=== PATIENT | male | born 1985 | race African-American/Black ===

== ENCOUNTER 2016-12-11 23:59 | Emergency (ER) | payer SELFPAY ==
[2016-12-12 00:01] VITALS: BP 145/88; PULSE 66; RESP 16; TEMP 98.9; O2SAT 98
[2016-12-12] MEDS ORDERED: AMOX500T PO (01:51)
[2016-12-12] MEDS ORDERED: DICL75TA PO (01:51)
--- NOTE | 2016-12-12 01:55 | PD ---
HPI Chief Complaint: Oral / Dental Pain or Problem Time Seen by Provider: 01:50 Travel History International Travel<30 days: No Contact w/Intl Traveler<30days: No Traveled to known affect area: No History of Present Illness HPI 31-year-old black male presents to emergency department with a complaint of dental pain for the past 3 days. He states that he has had a cavity in his tooth for some time. Over the last few days she's had increasing pain in his left lower mandible. Pain is moderate. Worse with chewing. No alleviating factors. PFSH Past Medical History Medical History: Denies Significant Hx Tetanus Vaccination: < 5 Years Past Surgical History Surgical History: No Previous Surgery Social History Alcohol Use: No Tobacco Use: Yes Allergies-Medications (Allergen,Severity, Reaction): Coded Allergies: tramadol (Verified Allergy, Severe, 12/12/16) Reported Meds & Prescriptions Reported Meds & Active Scripts Active Diclofenac Sodium DR (Diclofenac Sodium) 75 Mg Tabdr 75 Mg PO BID Amoxicillin 500 Mg Tab 500 Mg PO TID 10 Days Review of Systems General / Constitutional: No: Fever Eyes: No: Visual changes HENT: Positive: Dental Difficulties, No: Headaches, Sore Throat, Neck Pain, Ear Discharge, Earache Cardiovascular: No: Chest Pain or Discomfort Respiratory: No: Shortness of Breath Gastrointestinal: No: Abdominal Pain Genitourinary: No: Dysuria Musculoskeletal: No: Pain Skin: No Rash Neurologic: No: Weakness Psychiatric: No: Depression Endocrine: No: Polydipsia Hematologic/Lymphatic: No: Easy Bruising Physical Exam Narrative GENERAL: Well-developed, well-nourished in no acute distress. Nontoxic appearing. HEAD: Normocephalic, atraumatic. EYES: Pupils equal round and reactive. Extraocular motions intact. No scleral icterus. No injection or drainage. ENT: TMs clear without erythema. The external auditory canals clear. Nose: clear . Posterior pharynx is pink and moist. No tonsillar edema or exudate. Uvula midline. Airway patent. Patient has a large dental carry in tooth #19 no gingival erythema or edema. NECK: Trachea midline.Supple, nontender, moves head freely. No central bony tenderness or spasm. CARDIOVASCULAR: Regular rate and rhythm without murmurs, gallops, or rubs. RESPIRATORY: Clear to auscultation. Breath sounds equal bilaterally. No wheezes , rales, or rhonchi. GASTROINTESTINAL: Abdomen soft, non-tender, nondistended. No hepato-splenomegaly , or palpable masses. No guarding. EXTREMITIES: No clubbing, cyanosis, or edema. No joint tenderness, effusion, or edema noted. BACK: Nontender without deformity or crepitance. No flank tenderness. Data Data Last Documented VS Vital Signs Date Time Temp Pulse Resp B/P (MAP) Pulse Ox O2 Delivery O2 Flow Rate FiO2 12/12/16 00:01 98.9 66 16 145/88 (107) 98 Room Air Orders Orders Amoxicillin (Trimox) (12/12/16 02:00) Naproxen (Naprosyn) (12/12/16 02:00) MDM Medical Decision Making Medical Screen Exam Complete: Yes Emergency Medical Condition: Yes Medical Record Reviewed: Yes Differential Diagnosis MDM: Moderate Differential diagnoses: Dental abscess, dental caries, osteitis, cellulitis Narrative Course Patient's given amoxicillin 500 mg and Naprosyn 500 mg by mouth. This is dental caries, dentalgia Diagnosis Primary Impression: Dental caries Additional Impression: Dentalgia Patient Instructions: General Instructions Additional Instructions: Rest. [place] gargles. [place] oil on cotton balls. Amoxicillin and diclofenac.. follow-up with a dentist as soon as possible. And return to the ER if any problems. Med/Other Pt SpecificInfo: Prescription(s) given Scripts Diclofenac Sodium DR (Diclofenac Sodium DR) 75 Mg Tabdr 75 MG PO BID, #20 TAB 0 Refills Prov: Trice Moura MD 12/12/16 Amoxicillin (Amoxicillin) 500 Mg Tab 500 MG PO TID for Infection for 10 Days, TAB 0 Refills Prov: Trice Moura MD 12/12/16 Disposition: 01 DISCHARGE HOME Condition: Stable Galindo Manning Dec 12, 2016 01:55
[2016-12-12] MEDS ORDERED: NAPROXEN 500 MG TAB PO ONE (02:00)
[2016-12-12] MEDS ORDERED: AMOXICILLIN (TRIHYDRATE) 500 MG CAP PO ONE (02:00)
== END 2016-12-12 02:11 | disposition home or self-care (01) ==
LOC: NEPD 23:59
DX: K02.9 Dental caries, unspecified (principal); Z72.0 Tobacco use
CPT/HCPCS: 99284

== ENCOUNTER 2017-02-01 05:29 | Emergency (ER) | payer MEDICAID ==
[~2017-02-01] VITALS: Ht 188 cm; Wt 90.0 kg
[~2017-02-01 05:29] MED LIST: AMOX500T PO; DICL75TA PO
--- NOTE | 2017-02-01 05:44 | PD ---
HPI Chief Complaint: sore throat Time Seen by Provider: 05:30 Travel History International Travel<30 days: No Contact w/Intl Traveler<30days: No Traveled to known affect area: No History of Present Illness HPI 31-year-old male presents for evaluation of sore throat. Symptoms started 2 days ago. It is a pain when he swallows with associated chills, myalgias. He reports that he had a temperature 101.7. EMS this morning. He took some Tylenol yesterday but his symptoms have persisted which prompted evaluation. Denies drug use. Denies rash, recent travel, cough or congestion, urethral discharge, nausea or vomiting, abdominal pain. He has no other complaints at this time. [facility] Social History Alcohol Use: No Tobacco Use: Yes Allergies-Medications (Allergen,Severity, Reaction): Coded Allergies: tramadol (Verified Allergy, Severe, 12/12/16) Reported Meds & Prescriptions Reported Meds & Active Scripts Active Amoxicillin 875 Mg Tab 875 Mg PO BID [address] (Diclofenac Sodium) 75 Mg Tabdr 75 Mg PO BID Amoxicillin 500 Mg Tab 500 Mg PO TID 10 Days Review of Systems Except as stated in HPI: all other systems reviewed are Neg Physical Exam Narrative GENERAL: Well-developed well-nourished male in no acute distress SKIN: Warm and dry. HEAD: Atraumatic. Normocephalic. EYES: Pupils equal and round. No scleral icterus. No injection or drainage. ENT: No nasal bleeding or discharge. Mucous membranes pink and moist. There is oropharyngeal erythema and exudate formation. Uvula midline with no mass effect. NECK: Trachea midline. No JVD. No lymphadenopathy. CARDIOVASCULAR: Regular rate and rhythm. No murmur appreciated. RESPIRATORY: No accessory muscle use. Clear to auscultation. Breath sounds equal bilaterally. GASTROINTESTINAL: Abdomen soft, non-tender, nondistended. Hepatic and splenic margins not palpable. MUSCULOSKELETAL: No obvious deformities. No clubbing. No cyanosis. No edema. NEUROLOGICAL: Awake and alert. No obvious cranial nerve deficits. Motor grossly within normal limits. Normal speech. PSYCHIATRIC: Appropriate mood and affect; insight and judgment normal. Data Data Last Documented VS Vital Signs Date Time Temp Pulse Resp B/P (MAP) Pulse Ox O2 Delivery O2 Flow Rate FiO2 02/01/17 06:05 101.3 95 16 139/65 (89) 98 Orders Orders Group A Rapid Strep Screen (02/01/17 05:41) Ketorolac Inj (Toradol Inj) (02/01/17 05:45) Ed Discharge Order (02/01/17 05:57) MDM Medical Decision Making Medical Screen Exam Complete: Yes Emergency Medical Condition: Yes Medical Record Reviewed: Yes Differential Diagnosis Pharyngitis, tonsillitis, peritonsillar abscess, infectious mononucleosis, herpangina, retropharyngeal abscess, epiglottitis Narrative Course 31-year-old male with 2 days of sore throat, chills, fevers, myalgias. On examination he has exudative pharyngitis. Toradol was provided. Strep screen was performed however shortly after examination the patient demanded to leave. He did not want to wait for the strep screening to be performed and he would prefer to be treated empirically. Therefore the patient will be given a prescription for amoxicillin. Diagnosis Primary Impression: Exudative pharyngitis Additional Instructions: Medications prescribed. Stay well-hydrated and well-nourished. Take Tylenol and Motrin for pain and fever per dosing instructions on bottle over-the- counter. Follow-up with primary care physician and return for any emergent medical conditions. Med/Other Pt SpecificInfo: Prescription(s) given Scripts Amoxicillin (Amoxicillin) 875 Mg Tab 875 MG PO BID for Infection for 10 Days, #20 TAB 0 Refills Prov: Trice Moura MD 02/01/17 Disposition: 01 DISCHARGE HOME Condition: Stable Jaime Shahid Feb 01, 2017 05:44
[2017-02-01] MEDS ORDERED: KETOROLAC TROMETHAMINE 60 MG/2 ML (IM) VIAL IM ONE (05:45)
[2017-02-01] MEDS ORDERED: AMOX875T PO (05:57)
[2017-02-01 06:05] VITALS: BP 139/65; PULSE 95; RESP 16; TEMP 101.3; O2SAT 98
== END 2017-02-01 06:10 | disposition home or self-care (01) ==
LOC: NEPD 05:29
DX: J02.9 Acute pharyngitis, unspecified (principal); Z72.0 Tobacco use
CPT/HCPCS: 99283; J1885

== ENCOUNTER 2017-07-20 10:17 | Emergency (ER) | payer MEDICAID ==
[~2017-07-20] VITALS: Ht 195.6 cm; Wt 88.0 kg
[~2017-07-20 10:17] MED LIST changes: +AMOX875T PO
[2017-07-20 10:38] VITALS: BP 130/69; PULSE 85; RESP 18; TEMP 99.4; O2SAT 97
[2017-07-20] MEDS ORDERED: SODIUM CHLORIDE 0.9% FLUSH 10 ML FLUSH IVF PRN (12:30)
--- NOTE | 2017-07-20 12:51 | RADRPT ---
EXAM DATE: 07/20/2017 12:35 PM EDT AGE/SEX: 32 years / Male INDICATIONS: Chest pain CLINICAL DATA: This is the patient's initial encounter. Patient reports that signs and symptoms have been present for 2 days and indicates a pain score of 0/10. MEDICAL/SURGICAL HISTORY: None. None. COMPARISON: No prior exams available for comparison. FINDINGS: A single AP view of the chest demonstrates the lungs to be symmetrically aerated without evidence of mass, infiltrate or effusion. The cardiomediastinal contours are unremarkable. Osseous structures a re intact. CONCLUSION: No acute intrathoracic disease. Electronically signed by: Julito Londono MD 07/20/2017 12:49 PM EDT
[2017-07-20 12:54] LABS: AUTOMATED NEUTROPHIL # 2.2 TH/MM3 (1.8-7.7); BASOPHIL # 0.1 TH/MM3 (0-0.2); BASOPHIL % 1.4 % (0.0-2.0); EOSINOPHIL # 0.1 TH/MM3 (0-0.4); HEMATOCRIT 45.7 % (39.0-51.0); HEMOGLOBIN 15.8 GM/DL (13.0-17.0); LYMPH % 37.3 % (9.0-44.0); LYMPHOCYTE # 1.9 TH/MM3 (1.0-4.8); MEAN CELL VOLUME 82.5 FL (80.0-100.0); MEAN CORPUSCULAR HEMOGLOBIN 28.6 PG (27.0-34.0); MEAN CORPUSCULAR HGB CONC 34.7 % (32.0-36.0); MEAN PLATELET VOLUME 8.1 FL (7.0-11.0); MONO % 17.8 % (0.0-8.0); MONOCYTE # 0.9 TH/MM3 (0-0.9); NEUT % 42.5 % (16.0-70.0); PLATELET COUNT 256 TH/MM3 (150-450); RED BLOOD COUNT 5.54 MIL/MM3 (4.50-5.90); RED CELL DISTRIBUTION WIDTH 13.8 % (11.6-17.2); WHITE BLOOD COUNT 5.1 TH/MM3 (4.0-11.0)
[2017-07-20 13:16] LABS: ALT (GPT) 27 U/L (12-78); AST (GOT) 20 U/L (15-37); BICARBONATE 28.4 MEQ/L (21.0-32.0); BLOOD UREA NITROGEN 8 MG/DL (7-18); CALCIUM 9.1 MG/DL (8.5-10.1); CHLORIDE 105 MEQ/L (98-107); CREATININE 1.07 MG/DL (0.60-1.30); GLOMERULAR FILTRATION RATE 98 ML/MIN (>89); GLUCOSE,RANDOM 111 MG/DL (74-106); MAGNESIUM 2.4 MG/DL (1.5-2.5); SODIUM (NA) 141 MEQ/L (136-145)
[2017-07-20 13:19] LABS: ALKALINE PHOSPHATASE 62 U/L (45-117); TOTAL BILIRUBIN ADULT 0.3 MG/DL (0.2-1.0); TOTAL PROTEIN 7.5 GM/DL (6.4-8.2)
[2017-07-20 13:50] LABS: MONOSCREEN NEG (NEG)
--- NOTE | 2017-07-20 14:06 | PD ---
HPI Chief Complaint: General Weakness Time Seen by Provider: 12:09 Travel History International Travel<30 days: No Contact w/Intl Traveler<30days: No Traveled to known affect area: No History of Present Illness HPI Patient is a 32-year-old male presents emergency department for generalized body aches and just not feeling well. Mild nausea without vomiting. The patient states he had symptoms for the past 3 days. No other close sick contacts. No cough no congestion no fevers no runny nose no shortness of breath no rashes. No genital discharge no dysuria. Patient's symptoms are fairly nonspecific, states it been gradually worsening. Cannot think of any inciting events. States symptoms are mild, for the past 3 days, gradually worsening, context and associated signs and symptoms as above [facility] Past Medical History Medical History: Denies Significant Hx Diminished Hearing: No Immunizations Current: No Tetanus Vaccination: Unknown Influenza Vaccination: No Past Surgical History Surgical History: No Previous Surgery Social History Alcohol Use: No Tobacco Use: No Substance Use: No Allergies-Medications (Allergen,Severity, Reaction): Coded Allergies: tramadol (Verified Allergy, Severe, 07/20/17) Reported Meds & Prescriptions Reported Meds & Active Scripts Active No Active Prescriptions or Reported Medications Review of Systems Except as stated in HPI: all other systems reviewed are Neg Physical Exam Narrative GENERAL: Well-developed well-nourished tall male in no obvious distress. SKIN: Focused skin assessment warm/dry. No rash no wound seen on his person peer HEAD: Atraumatic. Normocephalic. EYES: Pupils equal and round. No scleral icterus. No injection or drainage. ENT: No nasal bleeding or discharge. Mucous membranes pink and moist. NECK: Trachea midline. No JVD. CARDIOVASCULAR: Regular rate and rhythm. No murmur appreciated. RESPIRATORY: No accessory muscle use. Clear to auscultation. Breath sounds equal bilaterally. GASTROINTESTINAL: Abdomen soft, non-tender, nondistended. Hepatic and splenic margins not palpable. MUSCULOSKELETAL: No obvious deformities. No clubbing. No cyanosis. No edema. NEUROLOGICAL: Awake and alert. No obvious cranial nerve deficits. Motor grossly within normal limits. Normal speech. PSYCHIATRIC: Appropriate mood and affect; insight and judgment normal. Data Data Last Documented VS Vital Signs Date Time Temp Pulse Resp B/P (MAP) Pulse Ox O2 Delivery O2 Flow Rate FiO2 07/20/17 14:39 67 18 142/72 (95) 100 07/20/17 10:38 99.4 Orders Orders Complete Blood Count With Diff (07/20/17 12:16) Comprehensive Metabolic Panel (07/20/17 12:16) Magnesium (Mg) (07/20/17 12:16) Chest, Single Ap (07/20/17 12:16) Ecg Monitoring (07/20/17 12:16) Iv Access Insert/Monitor (07/20/17 12:16) Oximetry (07/20/17 12:16) Oxygen Administration (07/20/17 12:16) Sodium Chloride 0.9% Flush (Ns Flush) (07/20/17 12:30) Monoscreen (07/20/17 12:16) Influenzae A/B Antigen (07/20/17 12:16) Ed Discharge Order (07/20/17 14:06) Labs Laboratory Tests Test 07/20/17 12:30 White Blood Count 5.1 TH/MM3 Red Blood Count 5.54 MIL/MM3 Hemoglobin 15.8 GM/DL Hematocrit 45.7 % Mean Corpuscular Volume 82.5 FL Mean Corpuscular Hemoglobin 28.6 PG Mean Corpuscular Hemoglobin Concent 34.7 % Red Cell Distribution Width 13.8 % Platelet Count 256 TH/MM3 Mean Platelet Volume 8.1 FL Neutrophils (%) (Auto) 42.5 % Lymphocytes (%) (Auto) 37.3 % Monocytes (%) (Auto) 17.8 % Eosinophils (%) (Auto) 1.0 % Basophils (%) (Auto) 1.4 % Neutrophils # (Auto) 2.2 TH/MM3 Lymphocytes # (Auto) 1.9 TH/MM3 Monocytes # (Auto) 0.9 TH/MM3 Eosinophils # (Auto) 0.1 TH/MM3 Basophils # (Auto) 0.1 TH/MM3 CBC Comment DIFF FINAL Differential Comment Blood Urea Nitrogen 8 MG/DL Creatinine 1.07 MG/DL Random Glucose 111 MG/DL Total Protein 7.5 GM/DL Albumin 4.0 GM/DL Calcium Level 9.1 MG/DL Magnesium Level 2.4 MG/DL Alkaline Phosphatase 62 U/L Aspartate Amino Transf (AST/SGOT) 20 U/L Alanine Aminotransferase (ALT/SGPT) 27 U/L Total Bilirubin 0.3 MG/DL Sodium Level 141 MEQ/L Potassium Level 4.2 MEQ/L Chloride Level 105 MEQ/L Carbon Dioxide Level 28.4 MEQ/L Anion Gap 8 MEQ/L Estimat Glomerular Filtration Rate 98 ML/MIN Monoscreen NEG MDM Medical Decision Making Medical Screen Exam Complete: Yes Emergency Medical Condition: Yes Differential Diagnosis Influenza, mono, dehydration, rhabdomyolysis, acute severe bacterial illness highly unlikely peer Narrative Course Patient room to the emergency department, symptoms consistent with a viral syndrome consider influenza however this certainly is very late in the season for influenza. Initial workup including CBC CMP Monospot influenza testing and chest x-ray negative. The patient appears well and nontoxic. Discussed he needs to follow-up with a primary care physician or the [facility] and return to ED criteria were discussed. Discussed symptomatic management aggressive p.o. hydration. Diagnosis Primary Impression: Fatigue Qualified Codes: R53.83 - Other fatigue Referrals: [facility] No Active Prescriptions or Reported Meds Disposition: 01 DISCHARGE HOME Condition: Stable Edison Perez MD July 20, 2017 14:06
[2017-07-20 14:39] VITALS: BP 142/72
== END 2017-07-20 14:50 | disposition home or self-care (01) ==
LOC: NEPD 10:17
DX: R53.83 Other fatigue (principal)
CPT/HCPCS: 71045; 80053; 83735; 85025; 86308; 87804; 99284

== ENCOUNTER 2017-08-04 06:20 | Emergency (ER) | payer MEDICAID ==
[~2017-08-04] VITALS: Ht 185.4 cm; Wt 88.0 kg
[2017-08-04 06:22] VITALS: BP 123/75; PULSE 92; RESP 15; TEMP 97.1; O2SAT 98
--- NOTE | 2017-08-04 06:34 | PD ---
HPI Chief Complaint: Oral / Dental Pain or Problem Time Seen by Provider: 06:29 Travel History International Travel<30 days: No Contact w/Intl Traveler<30days: No Traveled to known affect area: No History of Present Illness HPI 32-year-old black male presents emergency department with complaints of dental pain for the past 3 days. He has been using [id number] extra strength Excedrin without relief. He reports having appointment to see a dentist on the of this month. He denies any fever chills. He states the pain is moderate. Worse during the night some improvement during the day. He denies any facial swelling. History Past Medical Histgory Medical History: Denies Significant Hx Tetanus Vaccination: Unknown Past Surgical History Surgical History: No Previous Surgery Social History Alcohol Use: No Tobacco Use: No Allergies-Medications (Allergen,Severity, Reaction): Coded Allergies: tramadol (Verified Adverse Reaction, Intermediate, itching, 08/04/17) Reported Meds & Prescriptions Reported Meds & Active Scripts Active No Active Prescriptions or Reported Medications Review of Systems Except as stated in HPI: all other systems reviewed are Neg Physical Exam Narrative GENERAL: Well-developed, well-nourished in no acute distress. Nontoxic appearing. HEAD: Normocephalic, atraumatic. EYES: Pupils equal round and reactive. Extraocular motions intact. No scleral icterus. No injection or drainage. ENT: TMs clear without erythema. The external auditory canals clear. Nose: clear . Posterior pharynx is pink and moist. No tonsillar edema or exudate. Uvula midline. Airway patent. Patient has poor dentition. He has a large dental carry and tooth #18 and 31. No obvious abscess. NECK: Trachea midline.Supple, nontender, moves head freely. No central bony tenderness or spasm. CARDIOVASCULAR: Regular rate and rhythm without murmurs, gallops, or rubs. RESPIRATORY: Clear to auscultation. Breath sounds equal bilaterally. No wheezes , rales, or rhonchi. GASTROINTESTINAL: Abdomen soft, non-tender, nondistended. No hepato-splenomegaly , or palpable masses. No guarding. EXTREMITIES: No clubbing, cyanosis, or edema. No joint tenderness, effusion, or edema noted. BACK: Nontender without deformity or crepitance. No flank tenderness. Data Data Last Documented VS Vital Signs Date Time Temp Pulse Resp B/P (MAP) Pulse Ox O2 Delivery O2 Flow Rate FiO2 08/04/17 06:22 97.1 92 15 123/75 (91) 98 MDM Medical Screen Exam Complete: Yes Emergency Medical Condition: No Differential Diagnosis MDM: Moderate Differential diagnoses: Dental abscess, dental caries, osteitis, cellulitis Narrative Course A medical screening exam was performed: At the time of evaluation the presenting medical condition was determined not to be of an emergent nature. The patient was given the option of receiving additional care, but declined. Patient was given options for additional community resources from which to obtain care. The Patient Has Been advised to seek medical attention for their presenting complaint. The patient has been advised to return to the ER at any time if an emergent condition develops. Primary Impression: Encounter for medical screening examination Scripts No Active Prescriptions or Reported Meds Condition: Galindo Jones Aug 04, 2017 06:34
== END 2017-08-04 06:40 | disposition left against medical advice (07) ==
LOC: NEPD 06:20
DX: K08.89 Other specified disorders of teeth and supporting structures (principal)
CPT/HCPCS: 99281